=== PATIENT | male | born 1975 | race African-American/Black ===

== ENCOUNTER 2019-01-29 02:17 | Emergency (ER) | payer OTHER, BC ==
[~2019-01-29] VITALS: Ht 180.3 cm; Wt 108.9 kg
[~2019-01-29 02:17] MED LIST: LISINOPRIL10 MG; ZOFRAN ODT4 MG PO
[2019-01-29] MEDS ORDERED: LISINOPRIL-HCT1 EAC1 PO (02:25)
[2019-01-29 03:12] VITALS: BP 146/88
== END 2019-01-29 03:15 | disposition home or self-care (01) ==
LOC: ER 02:17
DX: M79.644 Pain in right finger(s) (principal); I10 Essential (primary) hypertension; Z79.899 Other long term (current) drug therapy; Z98.890 Other specified postprocedural states; W25.XXXA Contact with sharp glass, initial encounter; Y93.89 Activity, other specified; Y92.89 Other specified places as the place of occurrence of the external cause; Y99.9 Unspecified external cause status

== ENCOUNTER 2019-05-18 23:29 | Emergency (ER) | payer BC ==
[~2019-05-18] VITALS: Ht 180.3 cm; Wt 108.0 kg
[~2019-05-18 23:29] MED LIST changes: +LISINOPRIL-HCT1 EAC1 PO
[2019-05-19 00:37] LABS: ABSOLUTE NEUTROPHILS 5.7 thou/uL (1.4-8.2); BASOPHILS 0.6 % (0.0-2.0); EOSINOPHILS 1.2 % (0.0-3.0); HEMATOCRIT 41.4 % (42.0-52.0); HEMOGLOBIN 14.1 gm/dL (14.0-18.0); LYMPHOCYTES 27.2 % (24.0-44.0); MCH 33.3 pg (26.0-34.0); MCV 97.7 fL (80.0-100.0); MONOCYTES 7.7 % (1.0-8.0); PLATELET COUNT 205 thou/uL (150-400); POLYS 63.3 % (36.0-66.0); RBC 4.24 mil/uL (4.50-6.00); RDW 13.7 % (10.5-14.5); WBC 8.9 thou/uL (4.0-11.0)
[2019-05-19 00:38] LABS: ANION GAP 13 mmol/L (7-16); BUN 24 mg/dL (7-18); CALCIUM 8.5 mg/dL (8.5-10.1); CHLORIDE 103 mmol/L (98-107); CO2 23 mmol/L (21-32); CREATININE 1.4 mg/dL (0.7-1.3); GLUCOSE 100 mg/dL (74-106); SODIUM 139 mmol/L (136-145)
[2019-05-19 00:47] LABS: TROPONIN-I <0.06 ng/mL (<0.06)
[2019-05-19 01:44] VITALS: BP 169/110
--- NOTE | 2019-05-19 08:00 | EKG ---
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
== END 2019-05-19 02:10 | disposition home or self-care (01) ==
LOC: ER 23:29
PROVIDERS: Emergency Medicine
DX: R07.89 Other chest pain (principal); R20.2 Paresthesia of skin; I10 Essential (primary) hypertension; Z98.890 Other specified postprocedural states; Z79.899 Other long term (current) drug therapy

== ENCOUNTER 2020-10-05 00:32 | Emergency (ER) | payer BC ==
[~2020-10-05] VITALS: Ht 180.3 cm; Wt 108.4 kg
[2020-10-05] MEDS ORDERED: MECLIZINE HCL25 MG PO (04:25)
[2020-10-05 04:43] VITALS: BP 178/116
--- NOTE | 2020-10-05 08:18 | EKG ---
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
== END 2020-10-05 04:44 | disposition home or self-care (01) ==
LOC: ER 00:32
DX: G44.89 Other headache syndrome (principal); Z20.822 Contact with and (suspected) exposure to COVID-19; I10 Essential (primary) hypertension; R42 Dizziness and giddiness; Z79.899 Other long term (current) drug therapy